=== PATIENT | female | born 1960 | race Caucasian/White ===

== ENCOUNTER → 2019-07-11 09:33 | Outpatient (CLI) | payer OTHER, SELFPAY ==
[2019-07-11 09:26] VITALS: BMI 45.7
--- NOTE | 2019-07-11 09:37 | RAD_ITS ---
STUDY: X-RAY - RIGHT KNEE REASON FOR EXAM: Bilateral knee pain. TECHNIQUE: 4 view(s) of the knee. COMPARISON: None. FINDINGS: Normal visualized distal femur. Normal visualized proximal tibia and fibula. Normal proximal tibiofibular articulation. Normal medial femorotibial compartment. Normal lateral femorotibial compartment. There is mild joint space narrowing of the patellofemoral articulation. The soft tissue structures are unremarkable. RAD/Knee 4 or More Views IMPRESSION: Mild patellofemoral arthrosis. Electronically Signed: Stan Stringer MD at 11:11 EST Tel , Service support ,
--- NOTE | 2019-07-11 09:37 | RAD_ITS ---
STUDY: X-RAY - LEFT KNEE REASON FOR EXAM: Bilateral knee pain. TECHNIQUE: 4 view(s) of the knee. COMPARISON: None. FINDINGS: Normal visualized distal femur. Normal visualized proximal tibia and fibula. Normal proximal tibiofibular articulation. Normal medial femorotibial compartment. There is small marginal osteophytes and moderate joint space narrowing of the lateral femorotibial compartment. There is a small marginal osteophyte of the patella and mild joint space narrowing of the patellofemoral articulation. The soft tissue structures are unremarkable. RAD/Knee 4 or More Views IMPRESSION: Arthrosis of the lateral femorotibial and patellofemoral compartments. Electronically Signed: Stan Stringer MD at 11:10 EST Tel , Service support ,
== END ==
PROVIDERS: Referring Provider Orthopaedic Surgery; Visit Provider Orthopaedic Surgery
DX: M25.561 Pain in right knee (principal); M25.562 Pain in left knee
CPT/HCPCS: 73564

== ENCOUNTER → 2019-07-25 13:06 | Outpatient (CLI) | payer OTHER, SELFPAY ==
[2019-07-11 09:26] VITALS: BMI 45.7
--- NOTE | 2019-07-25 13:07 | MRI_ITS ---
STUDY: MRI LEFT KNEE REASON FOR EXAM: Left knee pain, especially medial, swelling, multiple surgeries. TECHNIQUE: Standardized fat and water weighted pulse sequences were obtained in all 3 orthogonal planes. COMPARISON: Radiographs 07/11/2019. FINDINGS: There may be a very small oblique tear of the inferior articular surface of the posterior horn of the medial meniscus, identified only on a single slice (proton density sagittal image 13). There is mild arthrosis of the medial femorotibial compartment with small marginal osteophytes and mild partial thickness chondral loss of the medial femoral condyle (T2 sagittal image 9). Normal medial femoral condyle and tibial plateau. Normal medial collateral ligamentous complex (MCL). Normal distal semimembranosus, gracilis and semitendinosus tendons. There is a partial lateral meniscectomy without discrete recurrent lateral meniscal tear. There is arthrosis of the lateral femorotibial compartment with marginal osteophytes and chondral thinning especially at the posterior aspect of the compartment (T2 sagittal image 19). Normal lateral femoral condyle and tibial plateau. Normal proximal tibiofibular articulation. Normal lateral collateral (fibular) ligament. Normal popliteus tendon. Normal biceps femoris tendon. There is mild intrasubstance mucoid degeneration of the anterior cruciate ligament (T2 sagittal image 14). Normal posterior cruciate ligament (PCL). Normal congruent patellofemoral articulation. There is arthrosis of the patellofemoral compartment with small marginal osteophytes and partial thickness chondral loss (T2 sagittal image 17). There is a surgical defect of the lateral patellar retinaculum. Normal quadriceps tendon. Normal patellar tendon. There is mild postoperative scarring in Hoffa''s fat pad. There is a small joint effusion. There is an intra-articular body posterior to the root of the posterior horn of the medial meniscus (T2 coronal image 8) measuring 0.7 cm in transverse dimension. There is a very small popliteal cyst (T2 sagittal image 9). There is mild edema in the anterior subcutis adipose space. The otherwise visualized osseous structures are unremarkable. MRI/Lower Ext Joint Only (Routine) IMPRESSION: Tricompartmental arthrosis. There may be a very small medial meniscal tear, identified only on a single slice. Partial lateral meniscectomy without demonstrated recurrent lateral meniscal tear. Small joint effusion. Very small popliteal cyst. Small posterior intra-articular body. Electronically Signed: Stan Stringer MD at 14:24 EST Tel , Service support ,
== END ==
PROVIDERS: PCP Family Medicine; Referring Provider Orthopaedic Surgery; Visit Provider Orthopaedic Surgery
DX: M17.0 Bilateral primary osteoarthritis of knee (principal); M65.9 Synovitis and tenosynovitis, unspecified
CPT/HCPCS: 73721

== ENCOUNTER → 2020-01-20 07:55 | Outpatient (CLI) | payer OTHER, SELFPAY ==
[2020-01-16 09:01] VITALS: BMI 47.2
--- NOTE | 2020-01-20 07:56 | MRI_ITS ---
STUDY: MRI RIGHT KNEE REASON FOR EXAM: Female, 59 years old. Fell down steps, chronic medial knee pain worse after fall TECHNIQUE: Standardized fat and water weighted pulse sequences were obtained in all 3 orthogonal planes. COMPARISON: X-ray July 11, 2019. FINDINGS: There is medial meniscus tear of the posterior horn and body with flipped fragment at the medial gutter, series 7 images 05/06 through . There is diffuse, greater than 50% thickness articular cartilage loss of the medial femorotibial compartment. There is reactive marrow edema of the medial tibial plateau. There is a partial sprain of the MCL with interstitial and periligamentous edema. Normal distal semimembranosus, gracilis and semitendinosus tendons. Normal lateral meniscus. Normal hyaline cartilage of the lateral femorotibial compartment. There is reactive marrow edema of the lateral femoral condyle. Normal proximal tibiofibular articulation. Normal lateral collateral (fibular) ligament. Normal popliteus tendon. Normal biceps femoris tendon. Normal anterior cruciate ligament (ACL). Normal posterior cruciate ligament (PCL). There is arthrosis of the patellofemoral articulation. There is diffuse, greater than 50% thickness articular cartilage loss of the patellofemoral compartment. There is spurring and subchondral edema. Normal medial and lateral patellar retinaculum. Normal quadriceps tendon. Normal patellar tendon. Normal Hoffa''s fat pad. There is a moderate volume joint effusion. The soft tissues are unremarkable. The otherwise visualized osseous structures are unremarkable. MRI/Lower Ext Joint Only (Routine) IMPRESSION: Medial meniscus tear. Degenerative change. Bone bruise or stress injury of the lateral femoral condyle and medial tibial plateau. Joint effusion. Electronically Signed: Deon Rosen MD at 15:12 EDT , Service support ,
== END ==
PROVIDERS: PCP Family Medicine; Referring Provider Orthopaedic Surgery; Visit Provider Orthopaedic Surgery
DX: M25.561 Pain in right knee (principal)
CPT/HCPCS: 73721

== ENCOUNTER → 2023-03-23 | Outpatient (CLI) | payer MEDICARE, OTHER, SELFPAY ==
--- NOTE | 2023-03-23 08:22 | CT_ITS ---
PROCEDURE: CT LEFT KNEE WITHOUT CONTRAST REASON FOR EXAM: Female, 62 years old. Preoperative planning for the MakoPlasty Robotic knee surgery. Knee pain. TECHNIQUE: Transaxial CT of the hip, knee and ankle were obtained. Coronal and sagittal reconstruction images of the knee were provided. Individualized dose optimization techniques were used for this CT. COMPARISON: None. FINDINGS: Standard protocol for the preoperative planning for the MakoPlasty robotic knee surgery was performed. Mild arthrosis of the hip. Moderate arthrosis of the medial, lateral and patellofemoral compartments of the knee. Mild arthrosis of the tibiotalar joint. CT/Extremity Lower without Contra IMPRESSION: Preoperative MakoPlasty Robotic knee surgical CT evaluation with findings as described above. Electronically Signed: Kaden Mtz MD at 9:22 EDT ,
--- NOTE | 2023-03-23 08:22 | EKG12_ITS ---
Test Reason : PRE OP Blood Pressure : / mmHG Vent. Rate : 068 BPM Atrial Rate : 068 BPM P-R Int : 150 ms QRS Dur : 082 ms QT Int : 428 ms P-R-T Axes : 054 006 029 degrees QTc Int : 455 ms Normal sinus rhythm Normal ECG Confirmed by ALF HARTLEY, VIRGINIA ([id number]), editor newspaper DAVID ANDREW ([id number]) on 03/25/2023 1:55:33 PM Referred By: Henrique Tavera Confirmed By:VIRGINIA MILNER MD
== END | disposition home or self-care (01) ==
PROVIDERS: PCP Family Medicine; Referring Provider Orthopaedic Surgery; Visit Provider Orthopaedic Surgery
DX: M17.12 Unilateral primary osteoarthritis, left knee (principal); M25.562 Pain in left knee
CPT/HCPCS: 73700; 93005

== ENCOUNTER 2023-03-30 13:25 | Observation (INO) | payer MEDICARE, OTHER, SELFPAY ==
[2023-03-23 09:52] LABS: Absolute Lymphocyte Count 1.63 X10^3/uL (0.83-4.51); Absolute Neutrophil Count 2.7 X10^3/uL (2.0-7.7); Basophil# 0.02 X10^3/uL; Basophil% 0.4 % (0-1); Hematocrit 40.5 % (37-47); Lymphocyte # 1.63 X10^3/ul (0.83-4.51); Lymphocyte % 32.9 % (19-41); Mean Corp Hgb Conc 32.1 g/dL (32-36); Mean Corpuscular Volume 87.1 fL (81-99); Mean Platelet Vol. 9.9 fl (6.2-12.0); Monocyte# 0.47 X10^3/uL; Monocyte% 9.5 % (0-10); NRBC Flagged by Analyzer 0 % (0-5); Neutrophil # 2.71 X10^3/uL (2.7-7.7); Neutrophil % 54.8 % (47-70); Platelet Count 167 K/mm3 (150-450); RBC Distribution Width CV 13.1 % (11.6-14.6); RBC Distribution Width SD 41.4 fl (35.1-43.9); Red Blood Count 4.65 M/mm3 (4.2-5.4)
[2023-03-23 09:59] LABS: Prothrombin Time (Protime)PT. 13.2 SECONDS (11.7-14.9)
[2023-03-23 10:00] LABS: Partial Thromboplast Time 26.8 Seconds (24.1-36.2)
[2023-03-23 10:50] LABS: Anion Gap 5 (5-15); BUN 23 mg/dL (7-18); BUN/Creat Ratio 33.7 RATIO (10-20); Calcium,Total 8.9 mg/dL (8.5-10.1); Chloride 108 mmol/L (98-107); Creatinine, Serum 0.68 mg/dL (0.55-1.02); EST Glomerular Filtration Rate 93 mL/min (>60); Est Glom Filt Rate - Afr Amer 112 mL/min (>60); Glucose 98 mg/dL (74-106); Potassium 3.8 mmol/L (3.5-5.1); Sodium Level 140 mmol/L (136-145)
[2023-03-23 11:42] LABS: AST(SGOT) 11 U/L (15-37); Alanine Aminotransfer ALT/SGPT 27 U/L (13-56); Albumin, Serum 3.6 g/dL (3.2-5.0); Alkaline Phosphatase 69 U/L (45-117); Bilirubin, Direct 0.19 mg/dL (0.00-0.30); Globulin 3.4 g/dL (2.2-4.2); Magnesium 2.3 mg/dL (1.6-2.6)
[2023-03-23 12:01] LABS: Hemoglobin A1c 5.1 % (3.8-5.6)
[2023-03-24 05:07] LABS: Fructosamine 213 umol/L (0-285)
[2023-03-30] VITALS (10 sets, daily range): BP systolic 110–128; BP diastolic 58–91; PULSE 75–92; RESP 15–16; TEMP 36.1–36.4; O2SAT 94–100; BMI 37.1; BMI 37.3
[2023-03-30] MEDS: Magnesium 1 GM over 15 mins IV (08:59)
[2023-03-30] MEDS: Lactated Ringers 1,000 ML 15 ML IV (08:59)
[2023-03-30] MEDS: Gabapentin 600 MG Tablet PO (09:00)
[2023-03-30] MEDS: Acetaminophen 500 MG Tablet 1000 MG PO ×3 (09:00→21:31)
[2023-03-30] MEDS: Scopolamine 1mg/72hr Patch 1 PATCH TD (09:00)
[2023-03-30 09:20] LABS: Bedside Glucose 78 mg/dL (74-106)
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
--- NOTE | 2023-03-30 11:05 | KNEE_PTH ---
PATIENT: MARTITA THOMAS LOC: [facility] U#:[id number] AGE/SX: 62/F ROOM: TN325 RE03/30/[address]: Dr. Henrique Tavera DO : 1960 BED: 1 DIS: 03/31/2023 SPEC #: [id number] RECD: 03/30/23 18:13 STATUS: EBENEZER PATINORyanne #: [id number] PABLO: 03/30/23 11:[address]: Henrique Tavera DEPT: SURGICAL PATHOLOGY RECD BY: Jessica Wagoner ENTERED: 03/31/23 08:33 SP TYPE: TOTAL KNEE OTHR DR: Dr. Britany Perez DO Tissues: Knee, NOS Procedures: Decalcification bone/plaque Surgery Specimen Level IV HEADER OPERATION: ERAS, left total knee replacement robotic arm assisted PRE-OP DIAGNOSIS: Osteoarthritis left knee TISSUE SUBMITTED: Debrided tissue and bone left knee MICROSCOPIC DIAGNOSIS Bone and tissue, left knee, total knee replacement/resection: Pieces of bone with degenerative osteoarthritic changes. Fibroadipose tissue, fibroconnective tissue and reactive synovial tissue. Focal changes consistent with pseudogout. PREET:alec 04/05/2023 MICROSCOPIC DESCRIPTION Slides are reviewed. GROSS DESCRIPTION Received is one container designated bone and tissue left knee. The specimen consists of multiple fragments of allred-yellow bone measuring in aggregate 11.0 x 10.0 x 3.0 cm. Also in the specimen container are multiple fragments of fibrocartilaginous tissue measuring in aggregate 6.0 x 4.0 x 2.0 cm. A number of bony fragments contain articular surfaces consistent with tibial plateau and femoral condyle and displaying prominent osteophyte formation, eburnation and bone erosion. Metallurgical Engineering Teacher sections are submitted in two cassettes as follows: 1 - soft tissue, 2 - bone after decalcification. / PREET:alec 03/31/2023 TC:5 CPT: 51044, 76281
[2023-03-30] MEDS: Cefazolin 2 GM in 0.9% Normal Saline (100mL Bag) 100 ML IV ×2 (11:10→18:20)
[2023-03-30] MEDS: TXA 1000mg in NS100 100ml (IVPB at Incision) 660 MG IV (11:20)
[2023-03-30] MEDS: TXA 1000mg in NS100 100ml (IVPB at Closure) 660 MG IV (12:02)
[2023-03-30] MEDS: TXA in NS 100ml (Placed in Wound) OPERA.SITE (12:02)
[2023-03-30] MEDS: Bupivacaine 0.5% PF 10 ML VIAL (12:50)
[2023-03-30] MEDS: 0.9% Normal Saline (Pres. free 10 ML Vial (12:50)
[2023-03-30] MEDS: dexAMETHasone 4 MG/ML Vial (12:50)
[2023-03-30] MEDS: Epinephrine (1 mg/ml) 1 MG/ML VIAL (12:50)
[2023-03-30] MEDS: Lactated Ringers 1,000 ML 125 ML IV (12:55)
--- NOTE | 2023-03-30 13:21 | RAD_ITS ---
STUDY: X-RAY - LEFT KNEE REASON FOR EXAM: Female, 62 years old. Follow-up after total knee arthroplasty. TECHNIQUE: 2 view(s) of the knee. COMPARISON: March 03, 2023 FINDINGS: There is a 3 component total knee arthroplasty in anatomic position. There are expected post-operative findings. There are no complications. No other significant abnormality is identified. RAD/Knee 1 or 2 Views IMPRESSION: Total knee arthroplasty in anatomic alignment without complications. Electronically Signed: Kaden Mtz MD at 14:04 EDT ,
--- NOTE | 2023-03-30 13:32 | PCM.OP.BLANK ---
Operative Report Date of Procedure: 03/30/23 Preoperative diagnosis: Left knee DJD Postoperative diagnosis: Same Procedure: Left total knee arthroplasty CT guided Robotic Assisted Implant: [employer] triathlon press fit, femoral component size3, tibial baseplate size 4, asymmetric patella size 35, polyethylene X3 size 9 CS Anesthesia: Spinal with adductor canal block Tourniquet time: 25 minutes at 300 mmHg Complications: None Condition: Stable to PACU Estimated blood loss: 200 cc Electrical Tests Supervisor Alfonzo Tucker. My physician marketing operations assistant was a vital part of this case. He was important in appropriate retraction during the case, and protection of soft tissues during procedure. His intimate knowledge of the case and my steps aided in safe and expedient completion of the procedure as well as appropriate position of the extremity during the case. He was also vital in assisting with closure under my direct supervision. Indication for procedure: This is a 62-year-old female with long standing degenerative joint disease of the knee who has failed conservative treatment and wished to proceed with elective total knee arthroplasty. Risk benefits and alternatives were reviewed including; risk of bleeding, infection, nerve artery and tissue damage, continued pain, postoperative stiffness, venous thromboembolism, need for postoperative rehabilitation, mechanical feel to the knee, and expected postoperative course. The pre- operative CT and templating was performed with component sizing. Procedure: The patient was met in the preoperative holding area. The operative extremity was identified by both patient and physician and was marked. Patient was met by anesthesia. An adductor canal block was placed by anesthesia postoperatively the patient was brought back to the operating room on a wheeled cart and transferred to the operating table in the supine position. Anesthesia was started. A well-padded tourniquet was placed on the operative extremity. The patient was prepped and draped in the usual sterile fashion. A timeout was called to ensure the proper patient procedure and extremity were being contemplated. An esmarch was used to exsanguinate the extremity. The tourniquet was inflated. A 10 blade scalpel was used to make a midline incision down through the skin and subcutaneous tissue. Skin retractors placed. Bovie and Aquamantis were used to perform meticulous hemostasis. full-thickness flaps were elevated medial and lateral along the joint capsule. A deep blade scalpel was used to perform a medial parapatellar arthrotomy. The knee was brought to full extension. A bovie was used to release the soft tissues off the most proximal aspect of the medial tibial plateau, a three-quarter inch curved osteotome was also used in this process. The infrapatellar fat pad was excised. The suprapatellar fat pad was excised partially anteriorolateraly and portion the anterioromedial pad was elevated from the femur. At this point our intra-articular femoral array was placed at a 45 degree angle proximal and posterior to the medial epicondyle. femoral checkpoint was placed at this time. Our tibial array was placed greater than 1 hands breath below the incision at a 20 degree angle stab incisions were made with a 15 blade scalpel and pins were placed and attached to the tibial array , tibial checkpoint was placed in the proximal tibial metaphysis. Tourniquet was let down. At this point registration jama were taken throughout the knee . Once the knee was registered we then tensioned the medial and lateral ligaments in extension and 90 degrees of flexion. We then used these numbers to adjust our components within parameters to balance the knee in both flexion and extension once this was done on our monitor we then proceeded with using the robotic arm to make our tibial plateau cut, anterior and posterior chamfer and distal femur cuts. we removed the cut fragments with the use of a bovie and Iona, we did use a lamina digital marketing associate to insure we visualized and removed all posterior osteophytes and at this time also used the Aquamantis on the posterior joint capsule. we then trialed and achieved the desired plan with a well-balanced knee. we used the green probe to levi the corresponding tibial rotation based on our CT template. Lug holes were drilled in the femur the tibia preparation was completed with the appropriate sized base plate pinned based on previous rotation levi. An appropriate sized fin punch was used on the tibia and 4 corner drill was used for the press fit component and the patella was prepared by first using a caliper to ensure sufficient bone stock and a patellar reamer to remove the desired amount of bone. lug holes drilled for an asymmetric poly. We then brought the knee through range of motion with excellent patellar tracking. We thoroughly irrigated the knee. Trial components were removed a posterior capsular injection was preformed with our standard cocktail. In addition the aqua Mantis was also used to aid in hemostasis. Betadine rinse was allowed to sit and washed out completely. Components were press-fit into place. Aricept rinse was then used followed by several more liters of irrigation after it was allowed to sit. The joint capsule was closed with #1 Ethibond [id number] followed by Vicryl in the subcutaneous tissues with hina in the skin. Arrays and checkpoints were removed prior to closure all counts were correct stab incisions were closed with a staple standard dressing in the form of Mepilex AG for the main incision and a small Mepilex over the pin holes. Thigh-high PARTH hose applied over top of dressing. Patient tolerated the procedure well and was directed to PACU in stable condition . There were no intraoperative complications.
[2023-03-30] MEDS: oxyCODONE 5 MG Tablet PO ×2 (16:56→21:31)
[2023-03-30] MEDS: Ketorolac 30 MG/ML Syringe IV (18:19)
[2023-03-30] MEDS: 0.9% Saline Lock 10 ML Syringe IV (18:20)
[2023-03-30] MEDS: 0.9% Normal Saline (1000mL) 1,000 ML 125 ML IV (20:03)
[2023-03-30] MEDS: HYDROmorphone 0.5 MG/0.5 ML SYRINGE IV ×2 (20:03→23:45)
[2023-03-30] MEDS: Pantoprazole Sodium 40 MG Tablet PO (21:30)
[2023-03-30] MEDS: Senna/Docusate Sodium 1 Tablet 2 TABLET PO (21:30)
[2023-03-31] MEDS: Ketorolac 30 MG/ML Syringe IV (00:50)
[2023-03-31] MEDS: Cefazolin 2 GM in 0.9% Normal Saline (100mL Bag) 100 ML IV ×2 (01:56→10:29)
[2023-03-31] MEDS: oxyCODONE 5 MG Tablet PO ×3 (01:56→10:29)
[2023-03-31 02:45] VITALS: BP 99/69; PULSE 99; RESP 16; TEMP 36.6; O2SAT 98
[2023-03-31 03:21] VITALS: BP 115/75; PULSE 92
[2023-03-31] MEDS: HYDROmorphone 0.5 MG/0.5 ML SYRINGE IV (03:24)
[2023-03-31] MEDS: APIXABAN 2.5 MG TABLET (WCH) PO (06:07)
[2023-03-31] MEDS: Acetaminophen 500 MG Tablet 1000 MG PO (06:07)
[2023-03-31 06:49] LABS: Hematocrit 36.9 % (37-47); Hemoglobin 12.3 g/dL (12.0-15.0); Mean Corp Hgb Conc 33.3 g/dL (32-36); Mean Corpuscular Hgb 28.8 pg (27.0-32.0); Mean Corpuscular Volume 86.4 fL (81-99); Mean Platelet Vol. 9.2 fl (6.2-12.0); Platelet Count 216 K/mm3 (150-450); RBC Distribution Width CV 13.1 % (11.6-14.6); RBC Distribution Width SD 40.9 fl (35.1-43.9); Red Blood Count 4.27 M/mm3 (4.2-5.4); White Blood Count 11.7 K/mm3 (4.4-11.0)
[2023-03-31 07:26] LABS: Anion Gap 7 (5-15); BUN 22 mg/dL (7-18); BUN/Creat Ratio 24.4 RATIO (10-20); Calcium,Total 8.9 mg/dL (8.5-10.1); Chloride 109 mmol/L (98-107); EST Glomerular Filtration Rate 67 mL/min (>60); Est Glom Filt Rate - Afr Amer 81 mL/min (>60); Estimated Creatinine Clearance 48.91 ml/min; Glucose 136 mg/dL (74-106); Potassium 4.3 mmol/L (3.5-5.1); Sodium Level 138 mmol/L (136-145)
[2023-03-31 08:45] VITALS: BP 99/62; PULSE 87; RESP 16; TEMP 36.3; O2SAT 98
[2023-03-31] MEDS: Senna/Docusate Sodium 1 Tablet 2 TABLET PO (10:29)
--- NOTE | 2023-03-31 10:55 | CASEMGMT ---
AUTUMN OLIVARES Assessment: Face to Face with pt for initial transition planning/care coordination assessment. AUTUMN OLIVARES introduced self and role at [facility], pt voices understanding and consents to assessment. Pt is A&O x4 and answers all questions appropriately at this time. Pt. is sitting up in bed with [facility] care ice machine on her (L) knee. Care providers, pharmacy, and demographics verified/updated. Admitting Dx:Left Total Knee Replacement Robotic PCP: Chris Specialists:Inside Sales Manager (Jovana), Sales Support Manager (Yvonne), Urologist (Enrrique), Ophamologist (Bruna) Preferred Pharmacy: [facility] ([place]) Insurance:Medicare Part A & B Prescription Benefit: yes LNOK:Stoney Ruffin () Living Will/HCPOA: No and No. Pt. declines to receive information on ADs. Pt. informed that she can make an appt. with [facility] to establish these documents as a free service if she desires Living Arrangements: Pt lives with her and son, [place] in a 2 story w/basement home. 6 steps w/railing to enter, and several 14 step w/railing stairways thoughtout the home. Prior to this admission, pt. states she was ambulating these stairs fine. Pt. states her bedrooms and laundry are on the second floor, but she has it set up so she can recover for th next few weeks on the first floor. Pt. states priro to this admission she was I in all ADLs and IADLs (except she has a warehouse record clerk who does the cleaning and laundry, but pt. states she could do these if needed). Transportation: Pt drives self and denies concerns with transportation. States her also drives and will be picking her up. DME: Shower chair, raised toilet seat, crutches, grab bars, hand held shower, walker, ice machine for her knee, wheelchair lift, energen oxygen machine (pt. state she wears 2 lpm oxygen HS. AUTUMN OLIVARES called pt's etl database developer at [phone] to verify this and was informed that the last order was put in on 06/26/2022 to discontinue home oxygen an pt. will use her own oxygen.), nebulizers, and pulse ox. Pt. denies need for additional DME at this time. C/SNF: Denies previous SNF. States in early 1999' she had HHC but cannot recall company. Pt. states she does not feel a need for any HHC at this time. Pt states no concerns with going home at time of dc. States she was able to walk in room today with just the walker and one PT standing by. States her and son will help her with recovery. Pt states no further concerns/needs. CM to follow. Advised pt to ask CM if any further question/concerns/needs arise, voices understanding. Pt Goal: D/C home with family support and follow-up plans in place. Pt. states she has out-patient therapy scheduled to start on Wednesday. Plan: Pt. to discharge home with family support and follow-up plans in place.
--- NOTE | 2023-03-31 12:38 | PCM.PN.ORT ---
Subjective Subjective Seen and examined. Pain controlled. No nausea vomiting shortness of breath or chest pain. Objective Data Objective Data Vital Signs: Vital Signs Temp Pulse Resp BP Pulse Ox O2 Del Method O2 Flow Rate 97.4 F L 87 16 99/62 98 Room Air 4 03/31/23 08:45 03/31/23 08:45 03/31/23 08:45 03/31/23 08:45 03/31/23 08:45 03/31/23 09:48 03/30/23 14:52 Oxygen Flow Rate (L/min) 4 Oxygen Delivery Method Room Air Weight: 203 lb 0.732 oz Body Mass Index (BMI) 37.3 Intake & Output: Intake and Output for Last 24 Hours 03/29/23 03/30/23 03/31/23 23:59 23:59 23:59 Intake Total 2237.83 / 3087.83 2770.00 / 2770.00 Balance 2237.83 / 3087.83 2770.00 / 2770.00 Lab / Micro Data 03/31/23 06:42 03/31/23 06:42 Labs: Laboratory Results - last 24 hr 03/31/23 06:42: WBC 11.7 H, RBC 4.27, Hgb 12.3, Hct 36.9 L, MCV 86.4, MCH 28.8, MCHC 33.3, RDW Std Deviation 40.9, RDW Coeff of Nirav 13.1, Plt Count 216, MPV 9.2, Sodium 138, Potassium 4.3, Chloride 109 H, Carbon Dioxide 22.0, Anion Gap 7, BUN 22 H, Creatinine 0.90, Estim Creat Clear Calc 48.91, Est GFR (MDRD) Af Amer 81, Est GFR (MDRD) Non-Af 67, BUN/Creatinine Ratio 24.4 H, Glucose 136 H, Calcium 8.9 Micro: Microbiology 03/23/23 09:06 Swab (Method) Nasal Screen MRSA/MSSA - Final Radiography Diagnostic Testing: Radiology Impression Knee X-Ray 03/30/23 13:21 IMPRESSION: Total knee arthroplasty in anatomic alignment without complications. Electronically Signed: Kaden Mtz MD at 14:04 EDT , Physical Exam Const alert and oriented x3 General Appearance: cooperative Extremity Extremity Narrative: Left knee dressing clean dry intact compartment soft neurovascular intact EHL tibialis anterior gastrocsoleus intact sensation light touch 2/4 pedal pulse Assessment & Plan Assessment/Plan (1) S/P total knee arthroplasty: QUALIFIERS: Laterality: left Qualified Code(s): Z96.652 - Presence of left artificial knee joint PLAN: Plan Postop day #1 left total knee arthroplasty DVT prophylaxis Eliquis 2.5 mg twice daily PAR[facility] mooney SCDs PT OT weightbearing as tolerated Discharge home begin outpatient physical therapy immediately And showering Wednesday Dressing change daily after first shower Follow-up in the office 2 weeks
--- NOTE | 2023-03-31 12:40 | DCINST_ITS ---
Discharge Instructions Diet Discharge Diet: No restrictions Dressing / Incision Call your doctor if you observe: Shortness of breath and Chest pain Additional Dressing/Incision Instructions:: Ice and elevate lower extremities 2 weeks while not ambulating. Ambulation is encouraged. Weight bearing as tolerated. Use assistive devise for stability. Encourage FULL knee extension and flexion 1 time EVERY time you get up and down and MULTIPLE times per day. No showering 72 hours after surgery. Begin showering postop day #3. Remove the dressing prior to shower and gently wash with warm water and antibacterial soap then pat dry and place abdominal pad (or plain gauze) and PARTH hose over top. This is to be done daily. Do not submerge for 3 weeks. If not showering daily after the initial 72 hours then you must clean incision and change dressing daily. Do not allow animals near the incision area. Keep clean. Follow anti- coagulation recommendations as prescribed. Do not take any NSAIDs while on blood thinner. Do not take any additional narcotic pain medication other than what was prescribed on your surgery day without discussing with physician. Narcotic medication can be addictive. Do not drink alcohol while taking narcotics. Supplement narcotic prescription with acetaminophen 1000 mg 4 times a day. Start physical therapy. If you are not currently scheduled for physical therapy or you are unsure of appointment time please call office [facility] to arrange. Call Dr. Tavera with any concerns. Follow Up Care Please Follow Up With: Henrique Tavera DO When: 2 weeks Test Results: Test results from this visit will be discussed in further detail at your follow- up appointment, if applicable. Discharge Plan Admission Admit Date/Time: 03/30/23 13:25 Primary Reason for Your Visit: Left total knee arthroplasty Attending Provider: Henrique Tavera Primary Care Provider: Britany Perez Discharge Orders/Prescriptions Prescriptions: New acetaminophen [acetaminophen] 500 mg tablet 1,000 mg PO Q6H PRN Qty: 100 0RF Eliquis 2.5 mg tablet 2.5 mg PO BID Qty: 28 0RF oxycodone 5 mg tablet 5 - 10 mg PO Q4H PRN (Reason: pain) 7 Days Qty: 60 0RF Continued hydroxychloroquine 200 mg tablet 200 mg PO BID omeprazole 40 mg capsule,delayed release(DR/EC) 40 mg PO QHS albuterol sulfate 90 mcg/actuation aerosol powdr breath activated 2 inh inhalation Q6H PRN (Reason: shortness of breath or wheezing) fexofenadine-pseudoephedrine [Edie-D 12 Hour] 60-120 mg tablet extended release 12 hr 1 tab PO DAILY [facility] 1 mg/mL kit 1 mg IM Q20M PRN (Reason: anaphylaxis) Rx Instructions: for 2 doses fluticasone propionate 50 mcg/actuation spray,suspension 1 spray intranasal DAILY albuterol sulfate 2.5 mg /3 mL (0.083 %) solution for nebulization 2.5 mg inhalation PRN PRN (Reason: shortness of breath or wheezing) Xolair 150 mg/mL syringe 150 mg subcut .[id number] Trelegy Ellipta 200-62.5-25 mcg blister with device 1 inh inhalation DAILY Patient Comments: Inhale 1 Puff as instructed once daily. Held ibuprofen 800 mg tablet 800 mg PO Q8H PRN (Reason: pain) Hold Instructions: Resume on 04/14/23. May resume after completion of anit- coagulant Eliquis Discontinued oxycodone-acetaminophen 5-325 mg tablet 1 tab PO Q8H PRN (Reason: pain) Patient Comments: TAKE 1 TABLET EVERY 4 TO 6 HOURS NEEDED FOR PAIN, takes 4-6 tablets a day. Referrals / Follow Up: Britany Perez DO [Primary Care Provider] - Disposition Disposition (needs filled in before D/C Order can be placed): Home, Self Care
--- NOTE | 2023-03-31 13:25 | CASEMGMT ---
Pt. has order for D.C. RN ELISE in to pt. room to discuss needs at discharge. Pt. states she feels fine going home and caring for her surgical wound. Pt. states her out-patient PT appointment on Wednesday is with Kristi in [place]. Pt. states she would like to apply the one-time coupon for her Elequis (I informed her that without it, [facility] pharmacy told this RN CM that it would be $188.59). I also informed pt. that her medications had actually been sent to our [facility] (Pt. states she is fine with this). RN ELISE called [facility] pharmacy and asked them to apply the coupon for Eliquis. Pt. asks if I can inform her RN that she would like to have a script for a medications since she had been on ATBs. I informed pt's RN of this. Pt's denies having any additional questions/concerns about discharge at this time.
[2023-03-31 14:00] VITALS: BP 102/60; PULSE 82; RESP 16; TEMP 36.7; O2SAT 99
== END 2023-03-31 14:01 | disposition home or self-care (01) ==
LOC: SDC 16:55 → MS3 16:55
PROVIDERS: Anesthesiology; Admitting Provider Orthopaedic Surgery; PCP Family Medicine; Referring Provider Orthopaedic Surgery; Visit Provider Orthopaedic Surgery
PROC: 0SRD0JZ Replacement of Left Knee Joint with Synthetic Substitute, Open Approach (ICD-10-PCS; CPT 27447; principal; 2023-03-30 10:35)
DX: M17.12 Unilateral primary osteoarthritis, left knee (principal); M06.9 Rheumatoid arthritis, unspecified; Z86.16 Personal history of COVID-19; Z79.891 Long term (current) use of opiate analgesic; Z79.899 Other long term (current) drug therapy; K21.9 Gastro-esophageal reflux disease without esophagitis; J45.909 Unspecified asthma, uncomplicated; K76.0 Fatty (change of) liver, not elsewhere classified; R25.2 Cramp and spasm; R06.02 Shortness of breath
CPT/HCPCS: 27447; 01402; 64447; S2900; 36415; 73560; 80048; 80076; 82962; 82985; 83036; 83735; 85025; 85027; 85610; 85730; 86850; 86900; 86901; 87081; 88305; 88311; 94668; 96361; 96365; 96366; 96375; 96376; 97162; 97166; 99221; C1776; J7030; J7120; A4216; G0378; J2405; J3475; J3490